=== PATIENT | female | born 1955 | race Caucasian/White ===

== ENCOUNTER → 2019-02-07 09:27 | Outpatient (CLI) | payer OTHER, SELFPAY ==
[2019-02-07 10:52] LABS: BUN Creatinine Ratio 14.3 (6-22); Blood Urea Nitrogen 10 mg/dL (7-17); Calcium 9.2 mg/dL (8.4-10.2); Carbon Dioxide 27 mmol/L (22-32); Chloride 105 mmol/L (98-107); Estimated Glomerular Filt Rate > 60.0 mL/min (>60); Glucose 97 mg/dL (80-110); HEMOLYSIS < 15 (0-50); Potassium 4.7 mmol/L (3.4-5.1); Sodium 141 mmol/L (137-145)
[2019-02-07 11:24] LABS: Thyroid Stimulating Hormone 0.78 uIU/mL (0.47-4.68)
== END ==
PROVIDERS: Visit Provider Hospitalist
DX: I10 Essential (primary) hypertension (principal); E03.9 Hypothyroidism, unspecified
CPT/HCPCS: 36415; 80048; 84443

== ENCOUNTER 2019-12-20 10:05 | Emergency (ER) | payer OTHER, SELFPAY ==
[2019-12-20 10:37] VITALS: BP 170/81; PULSE 71; RESP 14; TEMP 36.6; O2SAT 98
--- NOTE | 2019-12-20 13:46 | PC.NURSE ---
Pt called from waiting room without answer
--- NOTE | 2019-12-20 20:13 | ED.SKABFB ---
HPI - Skin/Abscess/Foreign Bdy General Chief complaint: Skin/Abscess/Foreign Body Stated complaint: Fell and lf arm cut Source: patient Mode of arrival: Ambulatory Limitations: no limitations History of Present Illness HPI narrative: The patient left without being seen or evaluated. She the patient was not interviewed or examined. Related Data Previous Rx's Medication Instructions Recorded levothyroxine 88 mcg tablet 88 mcg PO QDAY #90 tab 12/13/18 losartan 100 mg tablet 100 mg PO QDAY #90 tab 12/13/18 pravastatin 20 mg tablet 20 mg PO HS #90 tab 04/01/19 fluoxetine 10 mg capsule 10 mg PO DAILY #90 cap 07/07/19 estradiol 0.05 mg/24 hr weekly 0.05 mg TOPICAL Q7D@0900 #4 patch 08/20/19 transdermal patch alprazolam 0.5 mg tablet 0.5 mg PO BID PRN #60 tab 11/04/19 Allergies Allergy/AdvReac Type Severity Reaction Status Date / Time No Known Drug Allergies Allergy Verified 12/20/19 10:39 Patient History Social History Smoking Status: Never smoker Smoking Status: Never smoker alcohol intake frequency: 0-2 drinks per day Substance Use Type: does not use Exam Initial Vital Signs Initial Vital Signs: Vital Signs Temperature 98 F 12/20/19 10:37 Pulse Rate 71 12/20/19 10:37 Respiratory Rate 14 12/20/19 10:37 Blood Pressure 170/81 H 12/20/19 10:37 Pulse Oximetry 98 12/20/19 10:37 Discharge Plan Departure Patient Disposition: Left Without Being Seen Clinical Impression: Patient left after triage Discharge Date/Time: 12/20/19 13:47
== END 2019-12-20 13:47 | disposition left against medical advice (07) ==
PROVIDERS: Emergency Provider Emergency Medicine; PCP Student in an Organized Health Care Education/Training Program
CPT/HCPCS: 99281

== ENCOUNTER → 2020-11-11 14:27 | Outpatient (CLI) | payer OTHER, SELFPAY ==
[2020-11-11] MEDS: COVID-19 VACC #1, MRNA(MOD) 100 MCG/0.5 ML VIAL IM (14:35)
== END ==
PROVIDERS: PCP Student in an Organized Health Care Education/Training Program; Visit Provider Internal Medicine
DX: Z23 Encounter for immunization (principal)
CPT/HCPCS: 0011A; 91301

== ENCOUNTER → 2020-12-09 14:30 | Outpatient (CLI) | payer OTHER, SELFPAY ==
[2020-12-09] MEDS: COVID-19 VACC #2, MRNA(MOD) 100 MCG/0.5 ML VIAL IM (14:32)
== END ==
PROVIDERS: PCP Student in an Organized Health Care Education/Training Program; Visit Provider Internal Medicine
DX: Z23 Encounter for immunization (principal)
CPT/HCPCS: 0012A; 91301

== ENCOUNTER → 2021-04-26 11:11 | Outpatient (CLI) | payer OTHER, SELFPAY ==
[2021-04-26 13:00] LABS: BUN Creatinine Ratio 15.4 (6-22); Blood Urea Nitrogen 10 mg/dL (7-17); Carbon Dioxide 28 mmol/L (22-32); Chloride 101 mmol/L (98-107); Estimated Glomerular Filt Rate > 60.0 mL/min (>60); Glucose 92 mg/dL (80-110); HEMOLYSIS < 15 (0-50); Potassium 4.3 mmol/L (3.4-5.1); Sodium 138 mmol/L (137-145)
[2021-04-26 13:35] LABS: TSH w/ Reflex to FT4 1.76 uIU/mL (0.47-4.68)
== END ==
PROVIDERS: PCP Student in an Organized Health Care Education/Training Program; Referring Provider Student in an Organized Health Care Education/Training Program; Visit Provider Student in an Organized Health Care Education/Training Program
DX: F41.1 Generalized anxiety disorder (principal); F41.0 Panic disorder [episodic paroxysmal anxiety]; I10 Essential (primary) hypertension
CPT/HCPCS: 36415; 80048; 84443